=== PATIENT | male | born 1945 | race Caucasian/White ===

== ENCOUNTER → 2017-01-02 | Outpatient (CLI) | payer MEDICARE, BC | END | disposition home or self-care (01) | LOC: CVU 10:24 | PROVIDERS: ATTEND Licensed Practical Nurse | DX: Z13.6 Encounter for screening for cardiovascular disorders (principal); Z87.891 Personal history of nicotine dependence | CPT/HCPCS: 76706 ==

== ENCOUNTER → 2019-01-14 | Outpatient (CLI) | payer MEDICARE, BC | END | disposition home or self-care (01) | LOC: ROC 07:13 | PROVIDERS: ATTEND Internal Medicine | DX: C61 Malignant neoplasm of prostate (principal); I10 Essential (primary) hypertension; M19.90 Unspecified osteoarthritis, unspecified site; E78.00 Pure hypercholesterolemia, unspecified; Z87.891 Personal history of nicotine dependence; Z98.49 Cataract extraction status, unspecified eye; Z90.89 Acquired absence of other organs | CPT/HCPCS: 77290; G0463 ==

== ENCOUNTER 2019-07-13 05:17 | Inpatient (IN) | payer MEDICARE, BC ==
[~2019-07-13] VITALS: Ht 185.4 cm; Wt 103.5 kg
[~2019-07-13 05:17] MED LIST: AMLO10TA8 PO; CALC600T4 PO; CELE200C PO; GABA300C10 PO; GLUC1CAP18 PO; MULT1TAB60 PO; NIAC500T9 PO; OMEG1CAP25 PO; OMEP40CA42 PO; ROSU20TA2 PO; TELM1TAB26 PO; VITA1CAP PO
[2019-07-13] MEDS ORDERED: LACTATED RINGERS 1,000 ML IV SCH (06:07)
[2019-07-13 06:08] VITALS: BP 128/81
[2019-07-13] MEDS ORDERED: THROMBIN 5,000 UNIT VIAL TP ONE (06:10)
[2019-07-13] MEDS ORDERED: VANCOMYCIN 1,000 MG ONE (06:10)
[2019-07-13] MEDS ORDERED: BUPIVACAINE/PF 0.5% ONE (06:10)
[2019-07-13] MEDS ORDERED: EPINEPHRINE 1 MG/ML, 1ML ONE (06:10)
[2019-07-13] MEDS ORDERED: BACITRACIN 50,000 UNIT ONE (06:10)
[2019-07-13 06:31] VITALS: BP 128/81
[2019-07-13] MEDS ORDERED: OXYcodone 5 MG/5 ML ORAL.SOL UDC PO PRN (07:00)
[2019-07-13] MEDS ORDERED: GABAPENTIN 300 MG CAPSULE PO ONE (07:00)
[2019-07-13] MEDS ORDERED: LABETALOL 5MG/ML, 20ML IV PRN (07:00)
[2019-07-13] MEDS ORDERED: MEPERIDINE/PF 25MG/ML,1ML IVPush PRN (07:00)
[2019-07-13] MEDS ORDERED: HALOPERIDOL 5 MG/ML IV PRN (07:00)
[2019-07-13] MEDS ORDERED: HYDROmorphone 2 MG/ML, 1ML IVPush PRN (07:00)
[2019-07-13] MEDS ORDERED: PROMETHAZINE 25 MG/ML, 1ML IV PRN (07:00)
[2019-07-13] MEDS ORDERED: ACETAMINOPHEN 500 MG TABLET PO ONE (07:00)
[2019-07-13] MEDS ORDERED: hydrALAzine 20 MG/ML, 1ML IV PRN (07:00)
[2019-07-13] MEDS ORDERED: FENTANYL PF 250 MCG/5ML ONE (07:02)
[2019-07-13] MEDS ORDERED: MIDAZOLAM 1 MG/ML, 2ML ONE (07:02)
[2019-07-13] MEDS ORDERED: PROPOFOL 100 ML ONE (07:04)
[2019-07-13] MEDS ORDERED: FENTANYL PF 100 MCG/2ML ONE ×2 (08:28→09:03)
[2019-07-13] MEDS ORDERED: DEXAMETHASONE 4 MG/ML, 1ML ONE (08:36)
[2019-07-13] MEDS ORDERED: GLYCOPYRROLATE 0.2MG/1ML, 5ML ONE (08:36)
[2019-07-13] MEDS ORDERED: ONDANSETRON 2MG/ML, 2ML ONE (08:36)
[2019-07-13] MEDS ORDERED: ROCURONIUM 10MG/ML,5ML ONE (08:36)
[2019-07-13] MEDS ORDERED: PROPOFOL 10 MG/ML, 20ML ONE (08:36)
[2019-07-13] MEDS ORDERED: SUCCINYLCHOLINE 20 MG/ML, 10ML ONE (08:36)
[2019-07-13] MEDS ORDERED: CEFAZOLIN 1,000 MG ONE (08:36)
[2019-07-13] MEDS ORDERED: NEOSTIGMINE 1 MG/ML, 10ML ONE (08:36)
[2019-07-13] MEDS ORDERED: OXYcodone 5 MG/5 ML ORAL.SOL UDC ONE ×2 (09:03→09:27)
[2019-07-13] MEDS: FENTANYL PF 100 MCG/2ML IV PRN ×2 (09:05→09:25)
[2019-07-13] MEDS ORDERED: METHOCARBAMOL 1,000 MG in DEXTROSE 5% 100 ML IV ONE (09:30)
[2019-07-13] MEDS ORDERED: METHOCARBAMOL 1000MG/10 ML IVPB ONE (09:30)
[2019-07-13 10:35] VITALS: BP 115/63
[2019-07-13] MEDS ORDERED: MAGNESIUM HYDROXIDE 8%, 30ML UDC PO PRN (11:00)
[2019-07-13] MEDS ORDERED: METHOCARBAMOL 750 MG TABLET PO PRN (11:00)
[2019-07-13] MEDS ORDERED: ONDANSETRON 2MG/ML, 2ML IV PRN (11:00)
[2019-07-13] MEDS ORDERED: HYDROmorphone 2MG TABLET PO PRN (11:00)
[2019-07-13] MEDS ORDERED: HYDROcodone/APAP 5/325 TABLET PO PRN (11:00)
[2019-07-13] MEDS ORDERED: PROMETHAZINE 25 MG/ML, 1ML IM PRN (11:00)
[2019-07-13] MEDS ORDERED: BISACODYL 10 MG SUPP PR PRN (11:00)
[2019-07-13] MEDS ORDERED: DIPHENHYDRAMINE 25 MG CAPSULE PO PRN (11:00)
[2019-07-13] MEDS ORDERED: DIPHENHYDRAMINE 50 MG/ML, 1ML IM PRN (11:00)
[2019-07-13] MEDS ORDERED: DIPHENHYDRAMINE 50 MG/ML, 1ML IVPush PRN (11:00)
[2019-07-13] MEDS ORDERED: HYDROmorphone 2 MG/ML, 1ML IM PRN (11:00)
[2019-07-13 14:10] VITALS: BP 119/69
[2019-07-13] MEDS: OXYcodone/APAP 5/325MG TABLET PO PRN ×3 (14:21→22:42)
[2019-07-13] MEDS: D5%-0.9% NACL+KCL 20MEQ 1,000 ML IV SCH (17:32)
[2019-07-13] MEDS: CEFAZOLIN PMX 1GM/50ML 50 ML IVPB SCH (17:32)
[2019-07-13] MEDS: GABAPENTIN 300 MG CAPSULE PO SCH ×2 (17:33→21:56)
[2019-07-13 19:34] VITALS: BP 114/74
[2019-07-13] MEDS: ATORVASTATIN 80 MG TABLET PO SCH (21:56)
[2019-07-13 23:43] VITALS: BP 133/71
[2019-07-14] MEDS: CEFAZOLIN PMX 1GM/50ML 50 ML IVPB SCH ×2 (01:17→20:39)
[2019-07-14 03:03] VITALS: BP 117/72
[2019-07-14] MEDS: D5%-0.9% NACL+KCL 20MEQ 1,000 ML IV SCH ×4 (05:22→23:47)
[2019-07-14 05:31] LABS: BASOPHILS # (AUTO) 0.01 x10^3/uL (0-0.1); BASOPHILS % (AUTO) 0 % (0-1); EOSINOPHILS % (AUTO) 0 % (1-7); LYMPHOCYTES # (AUTO) 0.48 x10^3/uL (1-3.4); LYMPHOCYTES % (AUTO) 5 % (22-44); MD NO; MEAN CORPUSCULAR HEMOGLOBIN 30.8 pg (27.5-34.5); MEAN CORPUSCULAR HGB CONC 33.8 g/dL (33.2-36.2); MEAN CORPUSCULAR VOLUME 91.1 fL (81-97); MONOCYTES # (AUTO) 0.85 x10^3/uL (0.2-0.8); MONOCYTES % (AUTO) 8 % (2-9); NEUTROPHILS # (AUTO) 8.78 x10^3/uL (1.8-6.8); NEUTROPHILS % (AUTO) 87 % (42-75); PLATELET COUNT 147 x10^3/uL (130-400); RED BLOOD COUNT 4.54 x10^6/uL (4.38-5.82); RED CELL DISTRIBUTION WIDTH 13.6 % (9.4-14.8)
[2019-07-14 05:41] LABS: CHLORIDE 109 mmol/L (98-107)
[2019-07-14] MEDS: OMEPRAZOLE 20 MG CAPSULE.DR PO SCH (05:46)
[2019-07-14 05:47] LABS: ANION GAP 8 mmol/L (5-15); CALCIUM 8.7 mg/dL (8.5-10.1); CREATININE 0.99 mg/dL (0.7-1.3)
[2019-07-14] MEDS: OXYcodone/APAP 5/325MG TABLET PO PRN ×3 (05:47→22:21)
[2019-07-14] MEDS: ENOXAPARIN 40 MG/0.4 ML SQ SCH (05:47)
[2019-07-14] MEDS ORDERED: VANCOMYCIN 1,000 MG ONE ×2 (06:33→13:36)
[2019-07-14] MEDS ORDERED: EPINEPHRINE 1 MG/ML, 1ML ONE (06:33)
[2019-07-14] MEDS ORDERED: THROMBIN 5,000 UNIT VIAL TP ONE (06:33)
[2019-07-14] MEDS ORDERED: BUPIVACAINE/PF 0.5% ONE (06:33)
[2019-07-14] MEDS ORDERED: BACITRACIN 50,000 UNIT ONE (06:33)
[2019-07-14 07:28] VITALS: BP 100/62
[2019-07-14] MEDS: HYDROCHLOROTHIAZIDE 25 MG TABLET PO SCH (09:00)
[2019-07-14] MEDS: SENNA/DOCUSATE TABLET PO SCH (09:03)
[2019-07-14] MEDS: LOSARTAN 50MG TABLET PO SCH (09:07)
[2019-07-14] MEDS: GABAPENTIN 300 MG CAPSULE PO SCH ×3 (09:09→20:40)
[2019-07-14] MEDS: AMLODIPINE 10 MG TAB PO SCH (09:09)
[2019-07-14] MEDS ORDERED: MIDAZOLAM 1 MG/ML, 2ML ONE (11:53)
[2019-07-14] MEDS ORDERED: FENTANYL PF 250 MCG/5ML ONE (11:53)
[2019-07-14] MEDS ORDERED: REMIFENTANIL 2 MG ONE (12:23)
[2019-07-14] MEDS ORDERED: PROPOFOL 50 ML ONE ×2 (12:25→13:46)
[2019-07-14] MEDS ORDERED: FENTANYL PF 100 MCG/2ML IV PRN (14:00)
[2019-07-14] MEDS ORDERED: HYDROmorphone 2 MG/ML, 1ML IVPush PRN (14:00)
[2019-07-14] MEDS ORDERED: ACETAMINOPHEN 325 MG TABLET PO PRN (14:00)
[2019-07-14] MEDS ORDERED: HALOPERIDOL 5 MG/ML IV PRN (14:00)
[2019-07-14] MEDS ORDERED: METHOCARBAMOL 1,000 MG in DEXTROSE 5% 100 ML IV PRN (14:00)
[2019-07-14] MEDS ORDERED: MEPERIDINE/PF 25MG/ML,1ML IVPush PRN (14:00)
[2019-07-14] MEDS ORDERED: OXYcodone 5 MG/5 ML ORAL.SOL UDC PO PRN ×2 (14:00→15:30)
[2019-07-14] MEDS ORDERED: hydrALAzine 20 MG/ML, 1ML IV PRN (14:00)
[2019-07-14] MEDS ORDERED: PROMETHAZINE 25 MG/ML, 1ML IV PRN (14:00)
[2019-07-14] MEDS ORDERED: CEFAZOLIN 1,000 MG ONE (14:31)
[2019-07-14] MEDS ORDERED: DEXAMETHASONE 4 MG/ML, 1ML ONE (14:31)
[2019-07-14] MEDS ORDERED: ROCURONIUM 10MG/ML,5ML ONE (14:31)
[2019-07-14] MEDS ORDERED: ONDANSETRON 2MG/ML, 2ML ONE (14:31)
[2019-07-14] MEDS ORDERED: PROPOFOL 10 MG/ML, 20ML ONE (14:31)
[2019-07-14] MEDS ORDERED: WATER-INJECTION,STERILE 10 ML IV ONE (14:31)
[2019-07-14] MEDS ORDERED: LIDOCAINE-MPF 2% ,5ML ONE (14:31)
[2019-07-14] MEDS ORDERED: SUGAMMADEX 200 MG/2 ML IVPush ONE (14:36)
[2019-07-14] MEDS ORDERED: OXYcodone 5 MG/5 ML ORAL.SOL UDC ONE (15:25)
[2019-07-14 19:42] VITALS: BP 98/63
[2019-07-14] MEDS: ATORVASTATIN 80 MG TABLET PO SCH (20:40)
[2019-07-14 23:26] VITALS: BP 132/82
[2019-07-15] MEDS: OXYcodone/APAP 5/325MG TABLET PO PRN ×4 (02:13→20:13)
[2019-07-15] MEDS: D5%-0.9% NACL+KCL 20MEQ 1,000 ML IV SCH ×5 (02:30→22:30)
[2019-07-15 04:05] VITALS: BP 106/74
[2019-07-15] MEDS: CEFAZOLIN PMX 1GM/50ML 50 ML IVPB SCH (05:05)
[2019-07-15 05:47] LABS: BASOPHILS % (AUTO) 0 % (0-1); EOSINOPHILS % (AUTO) 1 % (1-7); LYMPHOCYTES # (AUTO) 0.49 x10^3/uL (1-3.4); LYMPHOCYTES % (AUTO) 5 % (22-44); MD NO; MEAN CORPUSCULAR HGB CONC 33.4 g/dL (33.2-36.2); MEAN CORPUSCULAR VOLUME 92.6 fL (81-97); MEAN PLATELET VOLUME 7.8 fL (7.4-10.4); MONOCYTES # (AUTO) 0.88 x10^3/uL (0.2-0.8); MONOCYTES % (AUTO) 10 % (2-9); NEUTROPHILS # (AUTO) 7.78 x10^3/uL (1.8-6.8); NEUTROPHILS % (AUTO) 84 % (42-75); PLATELET COUNT 131 x10^3/uL (130-400); RED BLOOD COUNT 3.92 x10^6/uL (4.38-5.82); RED CELL DISTRIBUTION WIDTH 13.7 % (9.4-14.8)
[2019-07-15] MEDS: ENOXAPARIN 40 MG/0.4 ML SQ SCH (06:00)
[2019-07-15] MEDS: OMEPRAZOLE 20 MG CAPSULE.DR PO SCH (06:26)
[2019-07-15 08:15] VITALS: BP 115/71
[2019-07-15] MEDS: HYDROCHLOROTHIAZIDE 25 MG TABLET PO SCH (10:22)
[2019-07-15] MEDS: AMLODIPINE 10 MG TAB PO SCH (10:22)
[2019-07-15] MEDS: GABAPENTIN 300 MG CAPSULE PO SCH ×3 (10:22→20:13)
[2019-07-15] MEDS: SENNA/DOCUSATE TABLET PO SCH (10:22)
[2019-07-15] MEDS: LOSARTAN 50MG TABLET PO SCH (10:22)
[2019-07-15] MEDS: TAMSULOSIN 0.4 MG CAP.ER.24H PO SCH (10:22)
[2019-07-15 14:23] VITALS: BP 101/64
[2019-07-15 19:54] VITALS: BP 115/65
[2019-07-15] MEDS: ATORVASTATIN 80 MG TABLET PO SCH (20:14)
[2019-07-16 01:34] VITALS: BP 112/63
[2019-07-16] MEDS: OXYcodone/APAP 5/325MG TABLET PO PRN ×2 (02:27→06:33)
[2019-07-16] MEDS: OMEPRAZOLE 20 MG CAPSULE.DR PO SCH (06:00)
[2019-07-16 06:05] LABS: BASOPHILS # (AUTO) 0.02 x10^3/uL (0-0.1); BASOPHILS % (AUTO) 0 % (0-1); EOSINOPHILS # (AUTO) 0.05 x10^3/uL (0-0.4); EOSINOPHILS % (AUTO) 1 % (1-7); LYMPHOCYTES # (AUTO) 0.78 x10^3/uL (1-3.4); LYMPHOCYTES % (AUTO) 12 % (22-44); MD NO; MEAN CORPUSCULAR HEMOGLOBIN 31.6 pg (27.5-34.5); MEAN CORPUSCULAR HGB CONC 34.4 g/dL (33.2-36.2); MEAN CORPUSCULAR VOLUME 91.9 fL (81-97); MEAN PLATELET VOLUME 8.2 fL (7.4-10.4); MONOCYTES # (AUTO) 0.81 x10^3/uL (0.2-0.8); MONOCYTES % (AUTO) 13 % (2-9); NEUTROPHILS # (AUTO) 4.85 x10^3/uL (1.8-6.8); NEUTROPHILS % (AUTO) 74 % (42-75); PLATELET COUNT 113 x10^3/uL (130-400); RED BLOOD COUNT 3.61 x10^6/uL (4.38-5.82); RED CELL DISTRIBUTION WIDTH 13.8 % (9.4-14.8)
[2019-07-16] MEDS: ENOXAPARIN 40 MG/0.4 ML SQ SCH (06:29)
[2019-07-16] MEDS: D5%-0.9% NACL+KCL 20MEQ 1,000 ML IV SCH ×2 (07:00→08:31)
[2019-07-16 07:29] VITALS: BP 95/61
[2019-07-16] MEDS: TAMSULOSIN 0.4 MG CAP.ER.24H PO SCH (08:31)
[2019-07-16] MEDS: GABAPENTIN 300 MG CAPSULE PO SCH (08:31)
[2019-07-16] MEDS: LOSARTAN 50MG TABLET PO SCH ×2 (08:32→09:00)
[2019-07-16] MEDS: SENNA/DOCUSATE TABLET PO SCH (08:32)
[2019-07-16] MEDS: HYDROCHLOROTHIAZIDE 25 MG TABLET PO SCH (08:32)
[2019-07-16] MEDS: AMLODIPINE 10 MG TAB PO SCH ×2 (08:32→09:00)
[2019-07-16] MEDS ORDERED: OXYC-302 PO (10:01)
[2019-07-16] MEDS ORDERED: METH750T87 PO (10:01)
== END 2019-07-16 13:36 | disposition home or self-care (01) | DRG 454 ==
LOC: ORIP 05:17 → 4NE 10:18 → DCLOUNGE 07-16 13:25
PROVIDERS: ADMIT Neurological Surgery; ATTEND Neurological Surgery
PROC: 0SB20ZZ Excision of Lumbar Vertebral Disc, Open Approach (ICD-10-PCS; 2019-07-13)
PROC: 4A11X4G Monitoring of Peripheral Nervous Electrical Activity, Intraoperative, External Approach (ICD-10-PCS; 2019-07-13)
PROC: 0SG00A0 Fusion of Lumbar Vertebral Joint with Interbody Fusion Device, Anterior Approach, Anterior Column, Open Approach (ICD-10-PCS; principal; 2019-07-13 07:00)
PROC: 0SG0071 Fusion of Lumbar Vertebral Joint with Autologous Tissue Substitute, Posterior Approach, Posterior Column, Open Approach (ICD-10-PCS; 2019-07-14)
PROC: 01NB0ZZ Release Lumbar Nerve, Open Approach (ICD-10-PCS; 2019-07-14)
PROC: 4A11X4G Monitoring of Peripheral Nervous Electrical Activity, Intraoperative, External Approach (ICD-10-PCS; 2019-07-14)
DX: M51.16 Intervertebral disc disorders with radiculopathy, lumbar region (principal); R71.0 Precipitous drop in hematocrit; M48.062 Spinal stenosis, lumbar region with neurogenic claudication; M43.16 Spondylolisthesis, lumbar region; M48.07 Spinal stenosis, lumbosacral region; E66.9 Obesity, unspecified; Z68.30 Body mass index [BMI] 30.0-30.9, adult; I10 Essential (primary) hypertension; E78.5 Hyperlipidemia, unspecified; K21.9 Gastro-esophageal reflux disease without esophagitis; M19.90 Unspecified osteoarthritis, unspecified site; Z85.46 Personal history of malignant neoplasm of prostate; M53.2X6 Spinal instabilities, lumbar region
CPT/HCPCS: 36415; 72100; 72131; 80048; 85025; 86850; 86900; C1713; C1729; C1767; G0378; J0171; J0690; J1100; J1170; J1650; J2250; J2405; J2704; J2710; J3010; J3370; C1763; C9352; J0330; J2800; J3480; J7120

== ENCOUNTER 2021-01-22 08:10 | Outpatient (CLI) | payer MEDICARE, BC ==
[~2021-01-22 08:10] MED LIST changes: +AMLO-211 PO; -AMLO10TA8 PO; -CALC600T4 PO; +CALC600T60 PO; +METH750T87 PO; +MULT-449 PO; -MULT1TAB60 PO; +OXYC1TAB14 PO
== END 2021-01-22 23:59 | disposition home or self-care (01) ==
LOC: ROC 08:10
PROVIDERS: ATTEND Radiology Radiation Oncology
DX: Z08 Encounter for follow-up examination after completed treatment for malignant neoplasm (principal); Z85.46 Personal history of malignant neoplasm of prostate
CPT/HCPCS: G0463

== ENCOUNTER 2021-02-16 13:00 | Day surgery (SDC) | payer MEDICARE, BC ==
[2021-02-14 12:10] LABS: ALANINE AMINOTRANSFERASE 41 U/L (12-78); ANION GAP 7 mmol/L (5-15); CALCIUM 9.3 mg/dL (8.5-10.1); CHLORIDE 107 mmol/L (98-107); CREATININE 1.58 mg/dL (0.7-1.3)
[2021-02-14 12:13] LABS: ALKALINE PHOSPHATASE 63 U/L (45-117); BILIRUBIN,TOTAL 1.1 mg/dL (0.2-1.0); TOTAL PROTEIN 7.8 g/dL (6.4-8.2)
[~2021-02-16] VITALS: Ht 185.4 cm; Wt 99.2 kg
[~2021-02-16 13:00] MED LIST changes: +ASCO100018 PO; +CHOL10003 PO; +FAMO10TA31 PO; +MELA5TAB14 PO; +POTA10TA12 PO; +ZINC50TA44 PO
[2021-02-16 13:10] VITALS: BP 154/89
[2021-02-16] MEDS ORDERED: CHLORHEXIDINE 15 ML UDC ONE (13:21)
[2021-02-16] MEDS ORDERED: LACTATED RINGERS 1,000 ML IV SCH (13:30)
[2021-02-16] MEDS ORDERED: CHLORHEXIDINE 15 ML UDC PO ONE (13:30)
[2021-02-16] MEDS ORDERED: MIDAZOLAM 1 MG/ML, 2ML ONE (14:06)
[2021-02-16] MEDS ORDERED: FENTANYL PF 250 MCG/5ML ONE (14:06)
[2021-02-16] MEDS ORDERED: NEOSTIGMINE 1 MG/ML, 10ML ONE (14:11)
[2021-02-16] MEDS ORDERED: GLYCOPYRROLATE 0.2MG/1ML, 5ML ONE (14:11)
[2021-02-16] MEDS ORDERED: EPINEPHRINE 1 MG/ML, 1ML ONE (14:20)
[2021-02-16] MEDS ORDERED: BUPIVACAINE/PF 0.5% ONE (14:20)
[2021-02-16] MEDS ORDERED: DEXAMETHASONE 4 MG/ML, 1ML ONE (14:55)
[2021-02-16] MEDS ORDERED: CEFAZOLIN 1,000 MG ONE ×2 (14:56→15:26)
[2021-02-16] MEDS ORDERED: PROMETHAZINE 25 MG/ML, 1ML IVPush PRN (15:00)
[2021-02-16] MEDS ORDERED: ONDANSETRON 2MG/ML, 2ML IVPush PRN (15:00)
[2021-02-16] MEDS ORDERED: ACETAMINOPHEN 325 MG TABLET PO PRN (15:00)
[2021-02-16] MEDS ORDERED: hydrALAzine 20 MG/ML, 1ML IV PRN (15:00)
[2021-02-16] MEDS ORDERED: OXYcodone 5 MG/5 ML ORAL.SOL UDC PO PRN ×2 (15:00→16:00)
[2021-02-16] MEDS ORDERED: FENTANYL PF 100 MCG/2ML IV PRN (15:00)
[2021-02-16] MEDS ORDERED: LABETALOL 5MG/ML, 20ML IV PRN (15:00)
[2021-02-16] MEDS ORDERED: HYDROmorphone 1 MG/ML, 1ML INJ IVPush PRN (15:00)
[2021-02-16] MEDS ORDERED: ROCURONIUM 10MG/ML,5ML ONE (15:25)
[2021-02-16] MEDS ORDERED: PROPOFOL 10 MG/ML, 20ML ONE (15:25)
[2021-02-16] MEDS ORDERED: ONDANSETRON 2MG/ML, 2ML ONE (15:47)
[2021-02-16] MEDS ORDERED: OXYC5TAB2 PO (15:55)
[2021-02-16] MEDS ORDERED: OXYcodone 5 MG/5 ML ORAL.SOL UDC ONE (16:44)
[2021-02-16] MEDS ORDERED: ACETAMINOPHEN 650 MG/20.3 ML UDC ONE (16:44)
[2021-02-16] MEDS ORDERED: FENTANYL PF 100 MCG/2ML ONE (16:44)
== END 2021-02-16 18:01 | disposition home or self-care (01) ==
LOC: OUT 13:00
PROVIDERS: ATTEND Surgery
DX: K43.0 Incisional hernia with obstruction, without gangrene (principal); I10 Essential (primary) hypertension; M19.90 Unspecified osteoarthritis, unspecified site; Z20.822 Contact with and (suspected) exposure to COVID-19; Z79.899 Other long term (current) drug therapy; Z87.891 Personal history of nicotine dependence
CPT/HCPCS: 36415; 49655; 80053; 93005; C1781; J0171; J0690; J1100; J2250; J2405; J2704; J2710; J3010; J7120; U0003

== ENCOUNTER → 2021-05-02 | Outpatient (CLI) | payer MEDICARE, BC ==
[~2021-05-02] MED LIST changes: -OMEP40CA42 PO; +OMEP40CA8 PO; +OXYC5TAB2 PO
== END | disposition home or self-care (01) ==
LOC: ROC 11:14
PROVIDERS: ATTEND Radiology Radiation Oncology
DX: C77.5 Secondary and unspecified malignant neoplasm of intrapelvic lymph nodes (principal); I10 Essential (primary) hypertension; M19.90 Unspecified osteoarthritis, unspecified site; Z85.46 Personal history of malignant neoplasm of prostate; Z87.891 Personal history of nicotine dependence; Z79.899 Other long term (current) drug therapy
CPT/HCPCS: 99212; G0463

== ENCOUNTER 2021-06-08 19:14 | Emergency (ER) | payer MEDICARE, BC ==
[~2021-06-08] VITALS: Ht 185.4 cm; Wt 93.6 kg
[~2021-06-08 19:14] MED LIST changes: +OXYC1TAB12 PO; -OXYC1TAB14 PO; +POTA-138 PO; -POTA10TA12 PO
--- NOTE | 2021-06-08 19:24 | NUR ---
EKG IN TRIAGE
--- NOTE | 2021-06-08 20:22 | NUR ---
PT C/O OF LEFT SIDED CP THAT RADIATES TO LEFT HAND WHICH FEELS NUMB SINCE NOON PT STATES HE IS HAVING REACTIONS TO SHINGLES SHOT. PT THINKS IT HAS TO DO WITH MUSCLE DENIES CP, N/V, F/C, SOB PT ATTACHED TO CARD/SP02/BP MONITORS. VSS. NADN CHANGED INTO GOWN, BED IN LOW, RAILS ENGAGED, CALL LIGHT ON LAP.
[2021-06-08 20:50] LABS: ALBUMIN 3.4 g/dL (3.4-5.0); ANION GAP 7 mmol/L (5-15); CALCIUM 9.5 mg/dL (8.5-10.1); CHLORIDE 102 mmol/L (98-107)
[2021-06-08 20:51] LABS: MEAN CORPUSCULAR HEMOGLOBIN 30.5 pg (27.5-34.5); MEAN CORPUSCULAR HGB CONC 34.9 g/dL (33.2-36.2); PLATELET COUNT 258 x10^3/uL (130-400); RED BLOOD COUNT 4.55 x10^6/uL (4.38-5.82)
[2021-06-08 20:55] LABS: ALANINE AMINOTRANSFERASE 33 U/L (12-78); ALKALINE PHOSPHATASE 83 U/L (45-117); BILIRUBIN,TOTAL 1.2 mg/dL (0.2-1.0); CREATININE 1.44 mg/dL (0.7-1.3); TROPONIN I < 0.015 ng/mL (0.000-0.045)
[2021-06-08] MEDS ORDERED: POTASSIUM CHLORIDE 20 MEQ TAB.ER.PRT ONE (21:19)
[2021-06-08] MEDS ORDERED: IBUPROFEN 600 MG TABLET ONE (21:24)
[2021-06-08] MEDS ORDERED: POTASSIUM CHLORIDE 20 MEQ TAB.ER.PRT PO ONE (21:30)
[2021-06-08] MEDS ORDERED: IBUPROFEN 200 MG TABLET PO ONE (21:30)
[2021-06-08 21:43] VITALS: BP 145/76
== END 2021-06-08 21:51 | disposition home or self-care (01) ==
LOC: ED 21:39
DX: R07.2 Precordial pain (principal); R07.89 Other chest pain; I10 Essential (primary) hypertension; E78.00 Pure hypercholesterolemia, unspecified; Z87.891 Personal history of nicotine dependence
CPT/HCPCS: 36415; 71045; 80053; 84484; 85025; 93005; 99285